=== PATIENT | female | born 1985 | race Caucasian/White ===

== ENCOUNTER 2020-07-15 06:00 | Inpatient (IN) | payer OTHER ==
[2020-07-15] MEDS ORDERED: BUTORPHANOL TARTRATE 2 MG/ML VIAL IVPB ONE (07:28)
[2020-07-15] MEDS ORDERED: SODIUM CHLORIDE 100 ML IVPB ONE (07:28)
[2020-07-15] MEDS ORDERED: BUTORPHANOL TARTRATE 2 MG/ML VIAL ONE (07:28)
[2020-07-15] MEDS: ELECTROLYTE-148 SOLN 1,000 ML IV SCH ×2 (07:30→11:05)
[2020-07-15 07:52] LABS: BASO % 0.8 % (0-2.0); HEMATOCRIT 34.1 % (32.4-45.2); LYMPH % 17.2 % (8-40); MCH 35.9 pg (25.7-33.7); MCHC 35.3 g/dl (32.0-36.0); MEAN CELL VOLUME 101.6 fl (80-96); MEAN PLT VOLUME 8.9 fl (7.5-11.1); MONO % 7.4 % (3.8-10.2); NEUT % 73.6 % (42.8-82.8); PLATELET COUNT 229 K/MM3 (134-434); RBC 3.35 M/mm3 (3.60-5.2); WHITE BLOOD COUNT 8.4 K/mm3 (4.0-10.0)
[2020-07-15 07:57] VITALS: BMI 38.2
[2020-07-15 07:58] LABS: INR 0.92 (0.83-1.09); PROTHROMBIN TIME (PATIENT) 11.4 SEC (9.7-13.0)
[2020-07-15 08:01] LABS: ACTIVATED PTT 28.9 SECONDS (25.2-36.5)
[2020-07-15 08:11] LABS: CALCIUM 9.5 mg/dL (8.5-10.1)
[2020-07-15 08:15] LABS: CREATININE 0.5 mg/dL (0.55-1.3)
[2020-07-15] MEDS ORDERED: PCA PUMP NR ONE ×3 (09:43→18:36)
[2020-07-15] MEDS ORDERED: FENTANYL/BUPIVACAINE/NS/PF - PCEA - 50 ML DISP.SYRIN EP ONE ×4 (09:44→15:57)
[2020-07-15] MEDS: FENTANYL/BUPIVACAINE/NS/PF - PCEA - 50 ML DISP.SYRIN EP SCH ×3 (10:20→16:00)
[2020-07-15] MEDS ORDERED: NALOXONE HCL 0.4 MG/ML VIAL IVPUSH PRN (11:03)
[2020-07-15] MEDS ORDERED: OXYTOCIN 30 UNITS in 0.9% NS 30 UNIT/500 ML INFUS.BAG IVPB SCH (11:30)
[2020-07-15] MEDS ORDERED: OXYTOCIN 30 UNITS in 0.9% NS 30 UNIT/500 ML INFUS.BAG IVPB ONE (11:36)
[2020-07-15] MEDS ORDERED: BUPIVACAINE HCL/PF 0.25% (2.5MG/ML) 10 ML VIAL ONE (16:30)
[2020-07-15] MEDS ORDERED: ACETAMINOPHEN INJECTION 100 ML IVPB ONE (17:50)
[2020-07-15] MEDS ORDERED: ACETAMINOPHEN 1000 MG/100 ML VIAL (NON FORMULARY) IVPB ONE (18:00)
[2020-07-15] MEDS ORDERED: CITRIC ACID/SODIUM CITRATE 30 ML UNIT-DOSE CUP PO ONE (18:03)
[2020-07-15] MEDS ORDERED: LIDOCAINE HCL/PF 2% SDV 5ML VIAL ONE (18:07)
[2020-07-15] MEDS ORDERED: OXYTOCIN 10 UNITS/ML VIAL ONE (18:19)
[2020-07-15] MEDS ORDERED: KETOROLAC TROMETHAMINE 30 MG/1 ML VIAL ONE (18:19)
[2020-07-15] MEDS ORDERED: ONDANSETRON 4 MG/2 ML VIAL ONE (18:19)
[2020-07-15] MEDS ORDERED: ceFAZolin SODIUM 1 GM VIAL ONE (18:19)
[2020-07-15] MEDS ORDERED: PROPOFOL 20 ML ONE ×2 (18:22)
[2020-07-15] MEDS ORDERED: ePHEDrine SULFATE 50 MG/1 ML AMPULE ONE (19:43)
[2020-07-15] MEDS ORDERED: KETAMINE HCL 500 MG/10 ML VIAL ONE (20:04)
[2020-07-15 20:26] LABS: CORD BASE EXCESS -4.2 mmol/L (0-2); CORD pH 7.348 (7.14-7.44)
[2020-07-15 20:28] LABS: CORD BASE EXCESS -6.5 mmol/L (0-2); CORD HCO3 20.8 mmHg (20-29); CORD pH 7.254 (7.14-7.44)
[2020-07-15] MEDS ORDERED: METHYLERGONOVINE MALEATE 0.2 MG/1 ML AMP IM PRN (20:32)
[2020-07-15] MEDS ORDERED: IBUPROFEN 800 MG/8 ML IJ IVPB PRN (20:32)
[2020-07-15] MEDS ORDERED: OXYTOCIN 20 UNITS in 0.9% NS 20 UNIT/1,000 ML INFUS.BAG IV ONE (21:19)
[2020-07-15] MEDS: OXYTOCIN 20 UNITS in 0.9% NS 20 UNIT/1,000 ML INFUS.BAG IV SCH (21:20)
[2020-07-16] MEDS: CEFAZOLIN 1 GM/D5W 1 GM/50 ML BAG IVPB SCH ×3 (01:36→17:54)
[2020-07-16 09:11] LABS: BASO % 0.3 % (0-2.0); EOS % 0.8 % (0-4.5); HEMATOCRIT 25.6 % (32.4-45.2); LYMPH % 13.2 % (8-40); MCH 36.1 pg (25.7-33.7); MEAN CELL VOLUME 103.3 fl (80-96); MEAN PLT VOLUME 8.9 fl (7.5-11.1); MONO % 9.7 % (3.8-10.2); PLATELET COUNT 192 K/MM3 (134-434); RBC 2.48 M/mm3 (3.60-5.2); RDW 13.3 % (11.6-15.6); WHITE BLOOD COUNT 12.7 K/mm3 (4.0-10.0)
[2020-07-16] MEDS: PRENATAL VITAMINS W/ FOLIC ACID TABLET (FP) PO SCH (10:08)
[2020-07-16] MEDS: ENOXAPARIN NA (PORCINE) 40 MG/0.4 ML DISP.SYRIN SQ SCH (10:08)
[2020-07-16] MEDS: FERROUS SO4 325 MG TABLET (FP) PO SCH ×2 (10:08→17:54)
[2020-07-16] MEDS ORDERED: diphenhydrAMINE HCL 25 MG CAPSULE (FP) PO PRN (14:42)
[2020-07-16] MEDS ORDERED: BISACODYL 10 MG SUPP.RECT RC PRN (20:34)
[2020-07-16] MEDS: OXYTOCIN 20 UNITS in 0.9% NS 20 UNIT/1,000 ML INFUS.BAG IV SCH (21:05)
[2020-07-16] MEDS: oxyCODONE HCL 5 MG TABLET PO PRN (21:34)
[2020-07-16] MEDS: IBUPROFEN 600 MG TABLET (FP) PO PRN (21:35)
[2020-07-16] MEDS: SIMETHICONE 80 MG TAB.CHEW (FP) PO PRN (21:36)
[2020-07-16] MEDS: ACETAMINOPHEN 325 MG TABLET (FP) PO PRN (21:36)
[2020-07-16] MEDS: SENNOSIDES/DOCUSATE COMBO (SENNA PLUS) TABLET (UD) PO PRN (21:36)
[2020-07-17] MEDS: ENOXAPARIN NA (PORCINE) 40 MG/0.4 ML DISP.SYRIN SQ SCH (09:40)
[2020-07-17] MEDS: FERROUS SO4 325 MG TABLET (FP) PO SCH ×2 (09:40→17:00)
[2020-07-17] MEDS: ACETAMINOPHEN 325 MG TABLET (FP) PO PRN ×2 (09:41→20:06)
[2020-07-17] MEDS: IBUPROFEN 600 MG TABLET (FP) PO PRN ×2 (09:41→20:06)
[2020-07-17] MEDS: PRENATAL VITAMINS W/ FOLIC ACID TABLET (FP) PO SCH (09:41)
[2020-07-17] MEDS: SIMETHICONE 80 MG TAB.CHEW (FP) PO PRN (09:41)
[2020-07-17] MEDS: AMOX TR/POT CLAV 875MG/125MG TABLETS (FP) PO SCH (17:00)
[2020-07-18] MEDS: IBUPROFEN 600 MG TABLET (FP) PO PRN ×3 (05:05→20:55)
[2020-07-18] MEDS: ACETAMINOPHEN 325 MG TABLET (FP) PO PRN ×2 (05:05→08:53)
[2020-07-18 08:05] LABS: BASO % 0.4 % (0-2.0); EOS % 2.7 % (0-4.5); HEMOGLOBIN 8.7 GM/dL (10.7-15.3); LYMPH % 20.3 % (8-40); MCH 35.6 pg (25.7-33.7); MCHC 34.7 g/dl (32.0-36.0); MEAN CELL VOLUME 102.6 fl (80-96); MEAN PLT VOLUME 8.3 fl (7.5-11.1); MONO % 7.4 % (3.8-10.2); NEUT % 69.2 % (42.8-82.8); PLATELET COUNT 205 K/MM3 (134-434); RBC 2.44 M/mm3 (3.60-5.2); RDW 13.3 % (11.6-15.6); WHITE BLOOD COUNT 8.7 K/mm3 (4.0-10.0)
[2020-07-18] MEDS: SIMETHICONE 80 MG TAB.CHEW (FP) PO PRN ×2 (08:52→20:55)
[2020-07-18] MEDS: FERROUS SO4 325 MG TABLET (FP) PO SCH ×2 (08:52→17:02)
[2020-07-18] MEDS: AMOX TR/POT CLAV 875MG/125MG TABLETS (FP) PO SCH ×2 (08:57→17:02)
[2020-07-18] MEDS: ENOXAPARIN NA (PORCINE) 40 MG/0.4 ML DISP.SYRIN SQ SCH (09:00)
[2020-07-18] MEDS: PRENATAL VITAMINS W/ FOLIC ACID TABLET (FP) PO SCH (09:03)
[2020-07-18] MEDS: SENNOSIDES/DOCUSATE COMBO (SENNA PLUS) TABLET (UD) PO PRN (20:55)
[2020-07-18] MEDS: oxyCODONE HCL 5 MG TABLET PO PRN (20:56)
[2020-07-19] MEDS: AMOX TR/POT CLAV 875MG/125MG TABLETS (FP) PO SCH (09:05)
[2020-07-19] MEDS: ENOXAPARIN NA (PORCINE) 40 MG/0.4 ML DISP.SYRIN SQ SCH (09:05)
[2020-07-19] MEDS: FERROUS SO4 325 MG TABLET (FP) PO SCH (09:06)
[2020-07-19] MEDS: ACETAMINOPHEN 325 MG TABLET (FP) PO PRN (09:06)
[2020-07-19] MEDS: PRENATAL VITAMINS W/ FOLIC ACID TABLET (FP) PO SCH (09:06)
[2020-07-19] MEDS: IBUPROFEN 600 MG TABLET (FP) PO PRN (09:06)
[2020-07-19 10:07] VITALS: BP 114/76; PULSE 103; TEMP 97.8
== END 2020-07-19 12:10 | disposition home or self-care (01) | DRG 540 ==
LOC: JLDR 06:00 → J3W 21:45
PROVIDERS: ADMIT Obstetrics & Gynecology; ATTEND Obstetrics & Gynecology
PROC: 10D00Z1 Extraction of Products of Conception, Low, Open Approach (ICD-10-PCS; principal; 2020-07-15)
DX: O41.1230 Chorioamnionitis, third trimester, not applicable or unspecified (principal); O62.2 Other uterine inertia; O24.410 Gestational diabetes mellitus in pregnancy, diet controlled; O42.90 Premature rupture of membranes, unspecified as to length of time between rupture and onset of labor, unspecified weeks of gestation; O32.3XX0 Maternal care for face, brow and chin presentation, not applicable or unspecified; O99.214 Obesity complicating childbirth; E66.9 Obesity, unspecified; Z3A.38 38 weeks gestation of pregnancy; Z37.0 Single live birth
CPT/HCPCS: 36415; 36600; 80048; 82803; 82962; 85025; 85610; 85730; 86780; 86850; 86900; 86901; 87070; 87086; 87186; 87205; 88307-TC; 94010; C9803; J0131; U0003; U0005

== ENCOUNTER 2023-06-15 07:21 | Emergency (ER) | payer OTHER ==
[2023-06-15 07:34] VITALS: RESP 20; TEMP 98.3; BMI 32.9
[2023-06-15] MEDS ORDERED: ONDANSETRON 4 MG/2 ML VIAL ONE (08:02)
[2023-06-15] MEDS ORDERED: FAMOTIDINE 10 MG/ML VIAL IVPB ONE (08:08)
[2023-06-15] MEDS: morphine CARPU-JECT 2 MG/1 ML DISP.SYRIN IVPUSH ONE (08:21)
[2023-06-15] MEDS: FAMOTIDINE 20 MG/50 ML IVPB 20 MG/50 ML MG IVPB ONE (08:22)
[2023-06-15] MEDS: SODIUM CHLORIDE 0.9% 500 ML INFUS.BAG IV ONE (08:22)
[2023-06-15] MEDS: ONDANSETRON 4 MG/2 ML VIAL IVPUSH ONE (08:22)
[2023-06-15 08:56] LABS: BASO % 0.9 % (0-2.0); EOS % 2.4 % (0-4.5); HEMATOCRIT 27.1 % (32.4-45.2); HEMOGLOBIN 8.6 GM/dL (10.7-15.3); LYMPH % 30.2 % (8-40); MCH 22.1 pg (25.7-33.7); MCHC 31.6 g/dl (32.0-36.0); MEAN PLT VOLUME 8.2 fl (7.5-11.1); MONO % 8.9 % (3.8-10.2); NEUT % 57.6 % (42.8-82.8); PLATELET COUNT 334 10^3/uL (134-434); RBC 3.87 M/mm3 (3.60-5.2); RDW 18.3 % (11.6-15.6); WHITE BLOOD COUNT 4.6 K/mm3 (4.0-10.0)
[2023-06-15 09:03] LABS: POTASSIUM 4.2 mmol/L (3.5-5.1)
[2023-06-15 09:04] LABS: HCG,QUALITATIVE URINE Negative
[2023-06-15 09:05] LABS: CALCIUM 8.9 mg/dL (8.5-10.1); EPI CELLS 7 /uL (0-25.1); HYALINE CASTS 0 /uL (0-3.1); PH,URINE 8.5 (5.0-8.0); URINE APPEARANCE CLOUDY; URINE BACTERIA 130 /uL (0-1359); URINE BILIRUBIN NEGATIVE (NEGATIVE); URINE COLOR YELLOW; URINE GLUCOSE (UA) NEGATIVE (NEGATIVE); URINE KETONE NEGATIVE (NEGATIVE); URINE LEUK ESTERASE TRACE (NEGATIVE); URINE NITRITE NEGATIVE (NEGATIVE); URINE PROTEIN NEGATIVE (NEGATIVE); URINE RBC 14 /uL (0-23.9); URINE UROBILINOGEN 0.2 mg/dL (0.2-1.0); URINE WBC 5 /uL (0-25.8)
[2023-06-15 09:06] LABS: ALBUMIN 3.6 g/dl (3.4-5.0); BLOOD UREA NITROGEN 8.6 mg/dL (7-18)
[2023-06-15 09:09] LABS: CREATININE 0.7 mg/dL (0.55-1.3)
[2023-06-15 09:10] LABS: TOT PROT 7.6 g/dl (6.4-8.2)
[2023-06-15 09:11] LABS: BILIRUBIN,TOTAL 0.4 mg/dL (0.2-1)
[2023-06-15 11:01] VITALS: BP 131/96; PULSE 80
[2023-06-15 11:22] LABS: URINE CRYSTALS AMORPHOUS PHOSPH/FEW /hpf
== END 2023-06-15 11:13 | disposition home or self-care (01) ==
LOC: JER 07:21
PROC: 3E033GC Introduction of Other Therapeutic Substance into Peripheral Vein, Percutaneous Approach (ICD-10-PCS; principal; 2023-06-15)
PROC: 3E030GC Introduction of Other Therapeutic Substance into Peripheral Vein, Open Approach (ICD-10-PCS; 2023-06-15)
PROC: 3E030GC Introduction of Other Therapeutic Substance into Peripheral Vein, Open Approach (ICD-10-PCS; 2023-06-15)
DX: R10.11 Right upper quadrant pain (principal); R10.13 Epigastric pain; R11.0 Nausea; R19.7 Diarrhea, unspecified
CPT/HCPCS: 36415; 76705-TC; 80053; 81003; 83690; 84703; 85025; 99284-25

== ENCOUNTER 2023-06-15 22:39 | Emergency (ER) | payer OTHER ==
[2023-06-15 22:46] VITALS: RESP 18; BMI 32.9
[2023-06-15] MEDS ORDERED: FAMOTIDINE 20 MG/50 ML IVPB 20 MG/50 ML MG IVPB ONE (23:58)
[2023-06-15] MEDS ORDERED: ACETAMINOPHEN 1000 MG/100 ML BAG IVPB ONE (23:58)
[2023-06-15] MEDS ORDERED: ONDANSETRON 4 MG/2 ML VIAL IVPUSH ONE (23:58)
[2023-06-16] MEDS ORDERED: MAG HYDROX/AL HYDROX/SIMETH 30 ML UNIT-DOSE CUP ONE (00:11)
[2023-06-16] MEDS ORDERED: ACETAMINOPHEN 325 MG TABLET (FP) ONE (00:11)
[2023-06-16] MEDS ORDERED: ONDANSETRON *ODT* 4 MG TABLET ONE (00:11)
[2023-06-16] MEDS ORDERED: FAMOTIDINE 20 MG TABLET ONE (00:11)
[2023-06-16] MEDS: MAG HYDROX/AL HYDROX/SIMETH 30 ML UNIT-DOSE CUP PO ONE (00:15)
[2023-06-16] MEDS: ACETAMINOPHEN 500 MG TABLET (FP) PO ONE (00:15)
[2023-06-16] MEDS: FAMOTIDINE 10 MG TABLET PO ONE (00:15)
[2023-06-16] MEDS: ONDANSETRON *ODT* 4 MG TABLET SL ONE (00:16)
[2023-06-16 01:14] VITALS: BP 146/86; PULSE 82; TEMP 98.2
== END 2023-06-16 01:40 | disposition home or self-care (01) ==
LOC: JER 22:39
DX: R10.13 Epigastric pain (principal); R11.0 Nausea; R19.7 Diarrhea, unspecified
CPT/HCPCS: 99284-25; Q0162

== ENCOUNTER 2023-06-17 00:41 | Emergency (ER) | payer OTHER ==
[2023-06-17 00:47] VITALS: BMI 32.9
[2023-06-17] MEDS ORDERED: MAG HYDROX/AL HYDROX/SIMETH 30 ML UNIT-DOSE CUP ONE (01:31)
[2023-06-17] MEDS ORDERED: SUCRALFATE 1 GM TABLET (FP) ONE (01:31)
[2023-06-17] MEDS ORDERED: ACETAMINOPHEN INJECTION 100 ML IVPB ONE (01:31)
[2023-06-17] MEDS ORDERED: FAMOTIDINE 10 MG/ML VIAL IVPB ONE ×2 (01:32)
[2023-06-17] MEDS ORDERED: ONDANSETRON 4 MG/2 ML VIAL ONE (01:32)
[2023-06-17] MEDS: SUCRALFATE 1 GM/10 ML UNIT DOSE CUPS PO ONE (02:01)
[2023-06-17] MEDS: ONDANSETRON 4 MG/2 ML VIAL IVPUSH ONE (02:01)
[2023-06-17] MEDS: MAG HYDROX/AL HYDROX/SIMETH 30 ML UNIT-DOSE CUP PO ONE (02:01)
[2023-06-17] MEDS: ACETAMINOPHEN 1000 MG/100 ML BAG IVPB ONE (02:01)
[2023-06-17] MEDS: LACTATED RINGERS SOLUTION 1000 ML INFUS.BAG IV ONE (02:01)
[2023-06-17 02:05] LABS: BASO % 1.1 % (0-2.0); EOS % 1.5 % (0-4.5); HEMATOCRIT 28.3 % (32.4-45.2); HEMOGLOBIN 8.8 GM/dL (10.7-15.3); LYMPH % 25.7 % (8-40); MCH 21.8 pg (25.7-33.7); MCHC 31.3 g/dl (32.0-36.0); MEAN CELL VOLUME 69.8 fl (80-96); MEAN PLT VOLUME 7.9 fl (7.5-11.1); MONO % 7.3 % (3.8-10.2); NEUT % 64.4 % (42.8-82.8); PLATELET COUNT 384 10^3/uL (134-434); RBC 4.05 M/mm3 (3.60-5.2); RDW 18.5 % (11.6-15.6); WHITE BLOOD COUNT 5.5 K/mm3 (4.0-10.0)
[2023-06-17] MEDS: FAMOTIDINE 20 MG/50 ML IVPB 20 MG/50 ML MG IVPB ONE (02:08)
[2023-06-17 02:28] LABS: POTASSIUM 3.8 mmol/L (3.5-5.1)
[2023-06-17 02:31] LABS: CALCIUM 9.4 mg/dL (8.5-10.1)
[2023-06-17 02:32] LABS: ALBUMIN 3.8 g/dl (3.4-5.0); BLOOD UREA NITROGEN 6.1 mg/dL (7-18); MAGNESIUM 2.3 mg/dL (1.8-2.4)
[2023-06-17 02:35] LABS: CREATININE 0.8 mg/dL (0.55-1.3)
[2023-06-17 02:36] LABS: BILIRUBIN,TOTAL 0.6 mg/dL (0.2-1); TOT PROT 8.1 g/dl (6.4-8.2)
[2023-06-17 05:27] VITALS: BP 145/83; PULSE 90; RESP 16; TEMP 98.5
[2023-06-17 07:12] LABS: ANISOCYTOSIS 3+; MACROCYTOSIS 0; ROULEAU 1+
== END 2023-06-17 05:37 | disposition home or self-care (01) ==
LOC: JER 00:41
PROC: 3E033GC Introduction of Other Therapeutic Substance into Peripheral Vein, Percutaneous Approach (ICD-10-PCS; principal; 2023-06-17)
PROC: 3E030NZ Introduction of Analgesics, Hypnotics, Sedatives into Peripheral Vein, Open Approach (ICD-10-PCS; 2023-06-17)
PROC: 3E030GC Introduction of Other Therapeutic Substance into Peripheral Vein, Open Approach (ICD-10-PCS; 2023-06-17)
DX: R10.13 Epigastric pain (principal); R11.0 Nausea; R19.7 Diarrhea, unspecified
CPT/HCPCS: 36415; 71046-TC-FY; 74177-TC; 80053; 83605; 83690; 83735; 84484; 84703; 85025; 93005; 93010; 99285-25; J0131

== ENCOUNTER 2024-05-12 21:30 | Emergency (ER) | payer OTHER ==
[2024-05-12 21:40] VITALS: BP 129/83; PULSE 103; RESP 20; TEMP 98.1; BMI 44.6
[2024-05-12] MEDS ORDERED: CEPHALEXIN MONOHYDRATE 500 MG CAPSULE (UD) ONE (22:55)
[2024-05-12] MEDS: CEPHALEXIN MONOHYDRATE 500 MG CAPSULE (UD) PO ONE (22:59)
[2024-05-12 23:07] LABS: PH,URINE 6.5 (5.0-8.0); URINE APPEARANCE CLEAR; URINE BILIRUBIN NEGATIVE (NEGATIVE); URINE COLOR YELLOW; URINE GLUCOSE (UA) NEGATIVE (NEGATIVE); URINE KETONE TRACE (NEGATIVE); URINE LEUK ESTERASE NEGATIVE (NEGATIVE); URINE NITRITE NEGATIVE (NEGATIVE); URINE PROTEIN NEGATIVE (NEGATIVE); URINE UROBILINOGEN 0.2 mg/dL (0.2-1.0)
== END 2024-05-13 00:08 | disposition home or self-care (01) ==
LOC: JER 21:30
DX: O09.522 Supervision of elderly multigravida, second trimester (principal); O26.892 Other specified pregnancy related conditions, second trimester; R10.2 Pelvic and perineal pain; Z3A.17 17 weeks gestation of pregnancy
CPT/HCPCS: 76815-TC; 81003; 87086; 99284-25

== ENCOUNTER 2024-10-03 13:25 | Inpatient (IN) | payer OTHER ==
[2024-10-03 16:08] LABS: GLUCOSE,RANDOM 93.0 mg/dL (74-106); TOT PROT 6.1 g/dl (6.4-8.2)
[2024-10-03 16:09] LABS: CO2 19.0 mmol/L (21-32)
[2024-10-03 16:10] LABS: ALK PHOS 121.0 U/L (40-150)
[2024-10-03 16:13] LABS: CREATININE 0.52 mg/dL (0.55-1.3); SGOT/AST 23.0 U/L (5-34); SGPT/ALT 18.0 U/L (0-55)
[2024-10-03] MEDS: ELECTROLYTE-148 SOLN 1,000 ML IV SCH (16:30)
[2024-10-03 17:40] VITALS: BMI 43.7
[2024-10-03] MEDS: CITRIC ACID/SODIUM CITRATE 30 ML UNIT-DOSE CUP PO ONE (18:00)
[2024-10-03 18:05] LABS: ABSOLUTE IMMATURE GRANULOCYTES 0.03 x10^3/uL (0.0-0.031); BASOPHILS # 0.02 x10^3/uL (0.01-0.08); EOSINOPHIL % 1.3 % (0.7-5.8); EOSINOPHILS # 0.10 x10^3/uL (0.04-0.36); MCHC 33.2 g/dl (32.2-35.5); MEAN CELL VOLUME 102.3 fl (79.4-94.8); MEAN PLT VOLUME 11.0 fl (9.4-12.3); MONOCYTE # 0.81 x10^3/uL (0.24-0.86); MONOCYTE % 10.7 % (4.7-12.5); RDW 13.0 % (12.1-16.8)
[2024-10-03] MEDS ORDERED: ONDANSETRON 4 MG/2 ML VIAL IVPUSH PRN (18:09)
[2024-10-03 18:13] LABS: INR 1.0 (0.83-1.09); PROTHROMBIN TIME (PATIENT) 10.9 SEC (9.7-13.0)
[2024-10-03 18:16] LABS: ACTIVATED PTT 28.7 SECONDS (25.2-36.5)
[2024-10-03] MEDS ORDERED: FENTANYL CITRATE/PF 50 MCG/ML VIAL ONE (18:32)
[2024-10-03] MEDS ORDERED: LIDO 2%/EPI 1:200000 PRESRVFRE (20 ML SDVIAL) ONE (18:32)
[2024-10-03 18:47] LABS: GLUCOSE,RANDOM 65.0 mg/dL (74-106)
[2024-10-03 18:49] LABS: CO2 19.0 mmol/L (21-32)
[2024-10-03 18:53] LABS: CREATININE 0.53 mg/dL (0.55-1.3)
[2024-10-03] MEDS ORDERED: ONDANSETRON 4 MG/2 ML VIAL ONE ×3 (19:32→20:05)
[2024-10-03] MEDS ORDERED: PHENYLEPHRINE HCL 10 MG/1 ML SINGLE DOSE VIAL ONE (19:38)
[2024-10-03] MEDS ORDERED: OXYTOCIN 10 UNITS/ML VIAL ONE (19:51)
[2024-10-03] MEDS ORDERED: IBUPROFEN (CALDOLOR) 800 MG/200 ML PREMIX BAGS IVPB ONE (21:46)
[2024-10-03] MEDS ORDERED: IBUPROFEN 800 MG/8 ML IJ IVPB ONE (21:48)
[2024-10-03] MEDS: IBUPROFEN 800 MG/8 ML IJ IVPB PRN (21:50)
[2024-10-03 23:06] LABS: HIV INTERPRETATION NEGATIVE (NEGATIVE)
[2024-10-04] MEDS: OXYTOCIN 20 UNITS in 0.9% NS 20 UNIT/1,000 ML INFUS.BAG IV SCH
[2024-10-04] MEDS: METHYLERGONOVINE MALEATE 0.2 MG/1 ML AMP IM PRN (01:25)
[2024-10-04] MEDS: METHYLERGONOVINE MALEATE 0.2 MG/1 ML AMP IM ONE (01:25)
[2024-10-04] MEDS: ACETAMINOPHEN 1000 MG/100 ML BAG IVPB ONE (01:40)
[2024-10-04] MEDS: ELECTROLYTE-148 SOLN 500 ML IV ONE (01:55)
[2024-10-04] MEDS: CARBOPROST TROMETHAMINE 250 MCG/ML AMPUL IM ONE (02:05)
[2024-10-04] MEDS ORDERED: TRANEXAMIC ACID 1000 MG/10 ML VIAL ONE (02:06)
[2024-10-04] MEDS: TRANEXAMIC ACID 1000 MG/10 ML VIAL IVPB ONE (02:10)
[2024-10-04 02:58] LABS: ABSOLUTE IMMATURE GRANULOCYTES 0.03 x10^3/uL (0.0-0.031); BASOPHILS # 0.03 x10^3/uL (0.01-0.08); EOSINOPHIL % 0.3 % (0.7-5.8); EOSINOPHILS # 0.03 x10^3/uL (0.04-0.36); MCHC 33.6 g/dl (32.2-35.5); MEAN CELL VOLUME 102.9 fl (79.4-94.8); MEAN PLT VOLUME 11.1 fl (9.4-12.3); MONOCYTE # 1.19 x10^3/uL (0.24-0.86); MONOCYTE % 10.7 % (4.7-12.5); RDW 12.9 % (12.1-16.8)
[2024-10-04] MEDS: SIMETHICONE 80 MG TAB.CHEW (FP) PO PRN (06:15)
[2024-10-04 08:27] LABS: ABSOLUTE IMMATURE GRANULOCYTES 0.06 x10^3/uL (0.0-0.031); BASOPHILS # 0.02 x10^3/uL (0.01-0.08); EOSINOPHIL % 0.1 % (0.7-5.8); EOSINOPHILS # 0.01 x10^3/uL (0.04-0.36); MCHC 33.2 g/dl (32.2-35.5); MEAN CELL VOLUME 103.0 fl (79.4-94.8); MEAN PLT VOLUME 11.5 fl (9.4-12.3); MONOCYTE # 1.00 x10^3/uL (0.24-0.86); MONOCYTE % 9.3 % (4.7-12.5); RDW 13.2 % (12.1-16.8)
[2024-10-04] MEDS: FERROUS SO4 325 MG TABLET (FP) PO SCH (08:36)
[2024-10-04] MEDS: PRENATAL VITAMINS W/ FOLIC ACID TABLET (FP) PO SCH (09:13)
[2024-10-04] MEDS: IBUPROFEN 600 MG TABLET (FP) PO PRN (16:18)
[2024-10-04] MEDS ORDERED: ACETAMINOPHEN 325 MG TABLET (FP) PO PRN (17:04)
[2024-10-04 17:44] LABS: ABSOLUTE IMMATURE GRANULOCYTES 0.05 x10^3/uL (0.0-0.031); BASOPHILS # 0.02 x10^3/uL (0.01-0.08); EOSINOPHIL % 0.2 % (0.7-5.8); EOSINOPHILS # 0.02 x10^3/uL (0.04-0.36); MCHC 33.5 g/dl (32.2-35.5); MEAN CELL VOLUME 103.9 fl (79.4-94.8); MEAN PLT VOLUME 11.0 fl (9.4-12.3); MONOCYTE # 1.15 x10^3/uL (0.24-0.86); MONOCYTE % 10.7 % (4.7-12.5); RDW 13.1 % (12.1-16.8)
[2024-10-04 18:07] LABS: GLUCOSE,RANDOM 103.0 mg/dL (74-106); TOT PROT 5.0 g/dl (6.4-8.2)
[2024-10-04 18:08] LABS: CO2 24.0 mmol/L (21-32)
[2024-10-04 18:09] LABS: ALK PHOS 97.0 U/L (40-150)
[2024-10-04 18:12] LABS: SGOT/AST 28.0 U/L (5-34); SGPT/ALT 12.0 U/L (0-55)
[2024-10-04 18:13] LABS: CREATININE 0.63 mg/dL (0.55-1.3)
[2024-10-04] MEDS: ACETAMINOPHEN 325 MG TABLET (FP) PO PRN (19:45)
[2024-10-04] MEDS ORDERED: BISACODYL 10 MG SUPP.RECT RC PRN (20:22)
[2024-10-04] MEDS: CALCIUM GLUC IN NACL, ISO-OSM 1 GM/50 ML BAG IVPB ONE (21:30)
[2024-10-05 07:38] LABS: ABSOLUTE IMMATURE GRANULOCYTES 0.08 x10^3/uL (0.0-0.031); BASOPHILS # 0.03 x10^3/uL (0.01-0.08); EOSINOPHIL % 0.7 % (0.7-5.8); EOSINOPHILS # 0.08 x10^3/uL (0.04-0.36); MCHC 33.1 g/dl (32.2-35.5); MEAN CELL VOLUME 97.6 fl (79.4-94.8); MEAN PLT VOLUME 10.6 fl (9.4-12.3); MONOCYTE # 1.04 x10^3/uL (0.24-0.86); MONOCYTE % 8.6 % (4.7-12.5); RDW 17.6 % (12.1-16.8)
[2024-10-05 08:21] LABS: GLUCOSE,RANDOM 90.0 mg/dL (74-106); TOT PROT 4.6 g/dl (6.4-8.2)
[2024-10-05 08:22] LABS: CO2 27.0 mmol/L (21-32)
[2024-10-05 08:24] LABS: ALK PHOS 85.0 U/L (40-150)
[2024-10-05 08:27] LABS: CREATININE 0.6 mg/dL (0.55-1.3); SGOT/AST 22.0 U/L (5-34); SGPT/ALT 11.0 U/L (0-55)
[2024-10-05] MEDS: DIPHTH,PERTUSS(ACELL),TET 0.5 ML DISP.SYRIN IM ONE (11:18)
[2024-10-05] MEDS: CALCIUM CARBONATE 650 MG TABLET PO SCH (11:19)
[2024-10-06 07:27] LABS: ABSOLUTE IMMATURE GRANULOCYTES 0.09 x10^3/uL (0.0-0.031); BASOPHILS # 0.05 x10^3/uL (0.01-0.08); EOSINOPHIL % 2.1 % (0.7-5.8); EOSINOPHILS # 0.23 x10^3/uL (0.04-0.36); MCHC 32.8 g/dl (32.2-35.5); MEAN CELL VOLUME 98.0 fl (79.4-94.8); MEAN PLT VOLUME 10.8 fl (9.4-12.3); MONOCYTE # 0.75 x10^3/uL (0.24-0.86); MONOCYTE % 7.0 % (4.7-12.5); RDW 17.3 % (12.1-16.8)
[2024-10-06 09:04] VITALS: BP 117/73; PULSE 119; RESP 18; TEMP 98.2
== END 2024-10-06 13:40 | disposition home or self-care (01) | DRG 540 ==
LOC: JDEL 13:25 → JLDR 15:30 → J3W 23:17
PROVIDERS: ADMIT Obstetrics & Gynecology; ATTEND Obstetrics & Gynecology
PROC: 10D00Z1 Extraction of Products of Conception, Low, Open Approach (ICD-10-PCS; principal; 2024-10-03)
PROC: 30233N1 Transfusion of Nonautologous Red Blood Cells into Peripheral Vein, Percutaneous Approach (ICD-10-PCS; 2024-10-04)
DX: O34.211 Maternal care for low transverse scar from previous cesarean delivery (principal); O86.4 Pyrexia of unknown origin following delivery; O14.94 Unspecified pre-eclampsia, complicating childbirth; O34.13 Maternal care for benign tumor of corpus uteri, third trimester; O72.1 Other immediate postpartum hemorrhage; D25.9 Leiomyoma of uterus, unspecified; Z3A.37 37 weeks gestation of pregnancy; Z37.0 Single live birth
CPT/HCPCS: 36415; 36430; 59025; 59409; 71046-TC-FY; 80048; 80053; 82570; 82977; 83010; 83605; 84156; 84550; 85025; 85032; 85610; 85730; 86780; 86850; 86900; 86901; 86922; 87086; 87389; 88307-TC; 90715; 94010; P9058